=== PATIENT | male | born 1960 | race Caucasian/White ===

== ENCOUNTER 2017-01-31 18:19 | Emergency (ER) | payer OTHER ==
[~2017-01-31] VITALS: Ht 177.8 cm; Wt 127.0 kg
[~2017-01-31 18:19] MED LIST: BACTRIM DS TAB1 EACH PO; CITALOPRAM HBR10 MG PO; CLONAZEPAM0.5 MG PO; IBUPROFEN800 MG PO; KEFLEX500 MG PO; NORCO 5-325 TA1 EACH PO; TRAMADOL HCL50 MG PO
[2017-01-31] MEDS ORDERED: TIZANIDINE HCL2 M1 PO (18:34)
[2017-01-31] MEDS ORDERED: KEFLEX500 MG PO (19:01)
== END 2017-01-31 19:21 | disposition home or self-care (01) ==
LOC: ED 18:19
DX: R59.0 Localized enlarged lymph nodes (principal); Z79.899 Other long term (current) drug therapy; Z98.890 Other specified postprocedural states
CPT/HCPCS: 99283

== ENCOUNTER 2021-06-16 12:51 | Emergency (ER) | payer OTHER ==
[~2021-06-16] VITALS: Ht 177.8 cm; Wt 135.5 kg
[~2021-06-16 12:51] MED LIST changes: +TIZANIDINE HCL2 M1 PO
--- OUTSIDE RECORDS SUMMARY | 2021-06-16 13:24 | XMS ---
PreManage Notification: VAL PALMER Security Quantitative Consultant Events No recent Security Events currently on file CRITERIA MET - PDMP CARE PROVIDERS LIZA STACK Nurse Practitioner: Current PHONE: Unknown Susy has no Care Guidelines for this patient. EAnna VISIT COUNT (12 MO.) 1 ALFONSO Reddy TOTAL 1 NOTE: Visits indicate total known visits. ED/UCC VISIT TRACKING (12 MO.) 06/16/2021 12:52 ALFONSO Uriarte OR TYPE: Emergency COMPLAINT: - HIGH BLOOD SUGAR INPATIENT VISIT TRACKING (12 MO.) No inpatient visits to display in this time frame [email or web address]
[2021-06-16] MEDS ORDERED: ASMANEX HFA13 GM (13:38)
[2021-06-16] MEDS ORDERED: COMBIVENT RESPIM4 GM INH (13:40)
[2021-06-16] MEDS ORDERED: GLIPIZIDE ER2.5 MG PO (17:32)
[2021-06-16] MEDS ORDERED: METFORMIN HCL500 MG PO (17:32)
[2021-06-17] MEDS ORDERED: TRAZODONE HCL100 MG PO (20:35)
[2021-06-17] MEDS ORDERED: D3-200050 MCG PO (20:36)
[2021-06-17] MEDS ORDERED: LYRICA50 MG PO (20:37)
[2021-06-17] MEDS ORDERED: HYDROXYZINE HCL50 MG PO (20:37)
[2021-06-17] MEDS ORDERED: DILTIAZEM 24HR120 MG PO (20:38)
[2021-06-17] MEDS ORDERED: ASPIRIN81 MG PO (20:39)
== END 2021-06-16 17:55 | disposition home or self-care (01) ==
LOC: ED 12:51
DX: E11.65 Type 2 diabetes mellitus with hyperglycemia (principal); M19.90 Unspecified osteoarthritis, unspecified site; J44.9 Chronic obstructive pulmonary disease, unspecified; Z79.899 Other long term (current) drug therapy; Z79.51 Long term (current) use of inhaled steroids; Z20.822 Contact with and (suspected) exposure to COVID-19
CPT/HCPCS: 80053; 81001; 82010; 82803; 85025; 99284; C9803; J1815; J7030; U0003

== ENCOUNTER 2021-06-17 20:18 | Emergency (ER) | payer OTHER ==
[~2021-06-17] VITALS: Ht 177.8 cm; Wt 133.1 kg
[~2021-06-17 20:18] MED LIST changes: +ASMANEX HFA13 GM; +COMBIVENT RESPIM4 GM INH; +GLIPIZIDE ER2.5 MG PO; +METFORMIN HCL500 MG PO
--- OUTSIDE RECORDS SUMMARY | 2021-06-17 20:20 | XMS ---
PreManage Notification: VAL PALMER Security Veneer Gluer Events No recent Security Events currently on file CRITERIA MET - [facility] - 2 Visits in 30 Days - PDMP CARE PROVIDERS LIZA STACK Nurse Practitioner: Family Current PHONE: Unknown Susy has no Care Guidelines for this patient. EAnna VISIT COUNT (12 MO.) 2 [facility] TOTAL 2 NOTE: Visits indicate total known visits. ED/UCC VISIT TRACKING (12 MO.) 06/17/2021 20:19 ALFONSO Uriarte OR TYPE: Emergency COMPLAINT: - DIABETIC BLOOD SUGAR PROBLEM 06/16/2021 12:52 ALFONSO Uriarte OR TYPE: Emergency COMPLAINT: - HIGH BLOOD SUGAR INPATIENT VISIT TRACKING (12 MO.) No inpatient visits to display in this time frame [email or web address]
[2021-06-17] MEDS ORDERED: TRAZODONE HCL100 MG PO (20:35)
[2021-06-17] MEDS ORDERED: D3-200050 MCG PO (20:36)
[2021-06-17] MEDS ORDERED: LYRICA50 MG PO (20:37)
[2021-06-17] MEDS ORDERED: HYDROXYZINE HCL50 MG PO (20:37)
[2021-06-17] MEDS ORDERED: DILTIAZEM 24HR120 MG PO (20:38)
[2021-06-17] MEDS ORDERED: ASPIRIN81 MG PO (20:39)
== END 2021-06-17 22:24 | disposition home or self-care (01) ==
LOC: ED 20:18
DX: R73.9 Hyperglycemia, unspecified (principal); R11.2 Nausea with vomiting, unspecified; J44.9 Chronic obstructive pulmonary disease, unspecified; M19.90 Unspecified osteoarthritis, unspecified site; Z79.84 Long term (current) use of oral hypoglycemic drugs; Z79.82 Long term (current) use of aspirin; Z79.899 Other long term (current) drug therapy
CPT/HCPCS: 36415; 80053; 81001; 82010; 82803; 85025; 99284; J7030

== ENCOUNTER 2022-10-23 06:55 | Day surgery (SDC) | payer OTHER ==
[2022-10-13 09:22] VITALS: BP 133/84
[~2022-10-23] VITALS: Ht 180.3 cm; Wt 130.0 kg
[~2022-10-23 06:55] MED LIST changes: +ASPIRIN81 MG PO; +CYMBALTA20 MG PO; +D3-200050 MCG PO; +DILTIAZEM 24HR120 MG PO; +HYDROXYZINE HCL50 MG PO; +JARDIANCE10 MG PO; +LYRICA50 MG PO; +TRAZODONE HCL100 MG PO
[2022-10-23 07:09] VITALS: BP 111/76
--- NOTE | 2022-10-23 07:45 | NUR ---
PT UP DATED ON PLAN OF CARE AND ANTICIPATED TIME OF PROCEEDURE. PT VERBALIZES UNDERSTANDING AND STATES HIS QUESTIONS HAVE BEEN ANSWERED. PT DENIES ADDITIONAL REQUESTS OR COMPLAINTS. CALL LIGHT WITHIN REACH. FAMILY AT BEDSIDE.
--- NOTE | 2022-10-23 09:17 | NUR ---
10/23/22 0917 Melissa Gilman 0911- PT ARRIVES TO PACU NONAROUSABLE TO STIMULI. RESP EVEN AND UNLABORED. OXYGEN SAT LOW TO MID 90'S ON 2L VIA CO2 NC. PT HAS A HX OF SLEEP APNEA AND DID NOT BRING CPAP TODAY.
[2022-10-23 09:50] VITALS: BP 117/80
--- NOTE | 2022-10-23 10:43 | OR ---
[facility] [address], [place] [address] Signed DATE OF OPERATION: 10/23/2022 SURGEON: Evelia Peterson MD PREOPERATIVE DIAGNOSES: 1. Maternal grandfather with colon cancer age 50. 2. Triple hemorrhoidectomy in 2019. 3. Personal history of multiple hyperplastic polyps in 2012 at age 51. POSTOPERATIVE DIAGNOSES: 1. Triple hemorrhoidectomy scars. 2. 3 mm rectal polyps x3 at 4-8 cm. 3. 8 mm sessile polyp at 75 cm in left colon. 4. 6 mm sessile polyp at 70 cm in left colon. PROCEDURE: Colonoscopy with hot biopsy. ESTIMATED BLOOD LOSS: None. INDICATIONS: Nazario is a 62-year-old gentleman, asked to see me for followup colonoscopy. He had multiple hyperplastic polyps removed in 2012 at the age of 51 [address] Channing Molina. His maternal grandfather had colon cancer at age [address]. [address] Evelia Cordero also performed a triple hemorrhoidectomy back in 2019. He said he gets a little burning around the anus sometimes when going to the bathroom. He said he has to use laxatives once in a while. He does not use a fiber product. In the office, I had given him a pamphlet on colonoscopy. We had reviewed that in detail. He understands the nature of the test. There is risk including, but not limited to gas bloating, crampy abdominal pain, bleeding, perforation requiring surgery, and missed diagnosis. In addition, we asked him to use a double bowel prep. That would consist of one gallon of polyethylene glycol. Unfortunately, he only used one-half gallon of the polyethylene glycol. Nevertheless, his prep was actually pretty good today. In addition he has to use tramadol on a daily basis along with a little marijuana to sleep. He also has a very full round face, heavy neck, chest and abdomen. He has a full face kinney. Therefore, we had asked that we have monitored anesthesia care with propofol infusion. That proved to be a shay decision. He had expressed understanding and wished to proceed. PROCEDURE NOTE: Electronically Signed By: EVELIA PETERSON MD 10/23/22 1043 PATIENT NAME: NAZARIO PALMER OPERATIVE REPORT DATE OF : 64 REPORT #: [id number] PHYSICIAN: EVELIA PETERSON MD PCP: SKYLER SLADANA MD REPORT IS CONFIDENTIAL AND NOT TO BE RELEASED WITHOUT AUTHORIZATION [facility] [address], [place] [address] Signed Nazario was taken into our endoscopy suite and placed in the left lateral decubitus position. He was given monitored anesthesia care with propofol infusion per our nurse recreation leader. A digital rectal exam was performed and he probably has some very early pruritus ani. There were no external hemorrhoids. He had good sphincter tone. No masses. The scope had been introduced and advanced under direct visualization of the camera into the cecum itself. His prep overall was good. There were several areas of liquid particulate stool matter. Most of that was irrigated and suctioned out. He really would benefit from one gallon of polyethylene glycol in the future. We could easily see the appendiceal orifice and ileocecal valve. The scope was then slowly withdrawn. We took pictures throughout for photodocumentation. The above-mentioned polyps were easily removed with the help of hot biopsy forceps. We could also see previous polypectomy sites, particularly in the rectum. He did have some diverticula in the sigmoid colon. They were moderate in size, few in number and scattered about. In the rectum, the scope had been retroflexed and I can see the three scars from his triple hemorrhoidectomy in 2019. There was very little in the way of any internal hemorrhoid tissue. After this, the scope was anteflexed. The gas was suctioned out and the colonoscope removed. Nazario tolerated the procedure quite well. RECOMMENDATIONS: I will see Nazario back in my office in 7 to 14 days to review his results. He will be on the five year plan due to his family history. In the future, he should probably use a double bowel prep. Evelia Peterson MD ALB/MODL /[id number] cc: Evelia Peterson MD [facility], Prateek Chandra [facility] Skyler Saldana MD Copies: EVELIA PETERSON MD Electronically Signed By: EVELIA PETERSON MD 10/23/22 1043 PATIENT NAME: NAZARIO PALMER OPERATIVE REPORT DATE OF : 64 REPORT #: [id number] PHYSICIAN: EVELIA PETERSON MD PCP: SKYLER SALDANA MD REPORT IS CONFIDENTIAL AND NOT TO BE RELEASED WITHOUT AUTHORIZATION [address] [address] Signed SKYLER SALDANA MD ~ Electronically Signed By: EVELIA PETERSON MD 10/23/22 1043 PATIENT NAME: NAZARIO PALMER OPERATIVE REPORT DATE OF : 64 REPORT #: [id number] PHYSICIAN: EVELIA PETERSON MD PCP: SKYLER SALDANA MD REPORT IS CONFIDENTIAL AND NOT TO BE RELEASED WITHOUT AUTHORIZATION
--- NOTE | 2022-10-27 11:33 | PATH ---
[facility] [address], [place] [address] Signed SPECIMEN(S): A RECTAL POLYP AT 4 CM SPECIMEN(S): B LEFT COLON POLYPS AT 75 CM SPECIMEN(S): C LEFT COLON POLYP AT 70 CM SPECIMEN SOURCE: A. RECTAL POLYP AT 4 CM B. LEFT COLON POLYPS AT 75 CM C. LEFT COLON POLYP AT 70 CM CLINICAL HISTORY: Follow-up, history of colon polyps, family history of colon cancer. Polyps x3. FINAL PATHOLOGIC DIAGNOSIS: A. Rectal polyp at 4 cm: - Hyperplastic polyp (one fragment). B. Left colon polyps at 75 cm: - Hyperplastic polyps (two fragments). C. Left colon polyp at 70 cm: - Hyperplastic polyp (two fragments). JVR:[facility] MICROSCOPIC EXAMINATION: Histologic sections of all submitted blocks are examined by light microscopy. These findings, together with the gross examination, support the pathologic diagnosis. GROSS DESCRIPTION: A. The specimen, labeled and designated "Jasson Palmer, " and designated on the requisition "colon rectum polypectomy at 4 cm," is received in formalin and consists of 1 walter soft tissue fragment measuring 0.2 x 0.4 cm and submitted entirely in (A1). B. The specimen, labeled and designated "Jasson Palmer, " and designated on the requisition "colon, descending/left polypectomy at 75 cm x 2 polyps," is received in formalin and consists of 2 walter soft polypoid tissue fragments measuring 0.3 x 0.4 cm in greatest dimension. Specimens are submitted entirely in (B1). C. The specimen, labeled and designated "Jasson Palmer, " and designated on the requisition "colon, descending left polypectomy at 70 cm," is received in formalin and consists of 2 walter soft tissue fragments measuring 0.2 x 0.3 cm and submitted entirely in (C1). MMA (under the direct supervision of a pathologist) PATIENT NAME: VAL PALMER PATHOLOGY DATE OF : 64 REPORT #: [id number] PHYSICIAN: MERCEDEZ BRANCH PCP: ERVIN COLLINS MD REPORT IS CONFIDENTIAL AND NOT TO BE RELEASED WITHOUT AUTHORIZATION [facility] [address], [place] [address] Signed The Gross Description was prepared using a voice recognition system. The report was reviewed for accuracy; however, sound-alike word errors, addition and/or deletions may occur. If there is any question about this report, please contact Client Services. PERFORMING LABORATORY: Technical component was performed by [facility], [address] [place] [id number] (CLIA# [id number]). [facility], [address] [place] [id number] (CLIA#: [id number]). Diagnostician: Domenico Ricketts MD Pathologist Electronically Signed 10/27/2022 Copies: ~ PATIENT NAME: VAL PALMER PATHOLOGY DATE OF : 64 REPORT #: [id number] PHYSICIAN: MERCEDEZ BRANCH PCP: ERVIN COLLINS MD REPORT IS CONFIDENTIAL AND NOT TO BE RELEASED WITHOUT AUTHORIZATION
== END 2022-10-23 09:55 | disposition home or self-care (01) ==
LOC: DS 06:55 → OPS 06:55 → DS 09:00 → OPS 09:15 → DS 09:45 → OPS 09:55
PROVIDERS: ATTEND Colon & Rectal Surgery
PROC: 0DBP8ZZ Excision of Rectum, Via Natural or Artificial Opening Endoscopic (ICD-10-PCS; 2022-10-23)
PROC: 0DBM8ZZ Excision of Descending Colon, Via Natural or Artificial Opening Endoscopic (ICD-10-PCS; principal; 2022-10-23 08:15)
DX: Z12.11 Encounter for screening for malignant neoplasm of colon (principal); Z86.010 Personal history of colon polyps; Z80.0 Family history of malignant neoplasm of digestive organs; K21.9 Gastro-esophageal reflux disease without esophagitis; E11.9 Type 2 diabetes mellitus without complications; F12.10 Cannabis abuse, uncomplicated; M19.90 Unspecified osteoarthritis, unspecified site; E66.9 Obesity, unspecified; Z68.41 Body mass index [BMI] 40.0-44.9, adult; F43.10 Post-traumatic stress disorder, unspecified; K63.5 Polyp of colon
CPT/HCPCS: 00811; 88305; J2001; J2704; J7121